=== PATIENT | female | born 1960 | race Caucasian/White ===

== ENCOUNTER 2022-04-15 21:34 | Emergency (ER) | payer MEDICAID, SELFPAY ==
[2022-04-15 21:42] VITALS: BP 162/78; PULSE 85; RESP 16; TEMP 36.6; O2SAT 98; BMI 24.8
--- NOTE | 2022-04-15 21:52 | ED.GENADULT ---
HPI - General Adult General Time Seen by Provider: 21:52 Date Seen: 04/15/22 Chief complaint: Dizziness/Vertigo Stated complaint: Dizzy, Nausea Time Seen by Provider: 04/15/22 21:39 Source: patient Mode of arrival: ambulatory Limitations: no limitations History of Present Illness HPI narrative: 61-year-old female who comes exam lightheadedness. This is been going on this afternoon. She denies headache or vertigo. No numbness or tingling in the arms and legs. She denies chest pain, palpitations, shortness of breath, cough, runny nose, fever, chills. No vomiting, no diarrhea, no abdominal pain. She says she was outside in the heat all day, denies alcohol use. Related Data Home Medications Medication Instructions Recorded Confirmed calcium carbonate 500 mg calcium mg PO BID 03/27/22 03/27/22 (1,250 mg) tablet celecoxib 100 mg capsule 100 mg PO BID 03/27/22 03/27/22 cetirizine 10 mg tablet 10 mg PO DAILY 03/27/22 03/27/22 gabapentin 100 mg capsule mg PO 03/27/22 03/27/22 lisinopril 10 mg tablet 10 mg PO QDAY 03/27/22 03/27/22 ondansetron 4 mg disintegrating mg PO Q6H PRN tab 03/27/22 03/27/22 tablet oxycodone-acetaminophen 5 mg-325 tab PO Q4-6H PRN tab 03/27/22 03/27/22 mg tablet tolterodine 1 mg tablet 1 mg PO QDAY 03/27/22 03/27/22 Allergies Allergy/AdvReac Type Severity Reaction Status Date / Time hydrocodone AdvReac Unknown Upset Verified 03/21/22 11:22 stomach Review of Systems Status of ROS: Reports: 10 or more systems reviewed and unremarkable except as noted in History and below [facility] Medical History (Updated 04/15/22 @ 22:36 by Curtis Durant MD) Trigger finger of left thumb Family History (Updated 03/21/22 @ 08:30 by Mali Alejandro) Father High blood pressure Social History (Updated 03/21/22 @ 08:31 by Mali Alejandro) Narrative: Marital Status: Occupation: School kitchen part-time Number of siblings: 4 Alcohol Use: Yes (weekly) Recreational Drug Use: No Smoking Status: Never smoker Do you use any of these nicotine containing products: None How often do you have a drink containing alcohol: never How often do you have six or more drinks on one occasion: Never AUDIT-C Alcohol total score: 0 Non-prescribed substance use: denies use Exam Const: Vital Signs, click to edit/add: Vital Signs - 24 hr 04/15/22 21:42 04/15/22 22:31 Temperature 97.9 F 97.9 F Pulse Rate [Right Pulse Oximeter] 85 84 Respiratory Rate 16 16 Blood Pressure [Ri ght Upper Arm] 162/78 H 154/70 H Pulse Oximetry 98 98 Documenting provider has reviewed patient's vital signs: yes Common normals: no apparent distress, oriented x3, alert and well nourished HENMT: Common normals: normocephalic, head/scalp atraumatic, external ears normal and external nose normal Head and scalp: normocephalic and atraumatic Nose: external nose normal External ear: external ears normal Eye: Common normals: PERRL and conjunctivae normal Conjunctiva: conjunctiva(e) normal Pupil: PERRL Neck & C-Spine: Common normals: full ROM, no lymphadenopathy and supple Chest: Common normals: palpation of chest normal Resp: Common normals: normal respiratory effort and clear to auscultation bilaterally Auscultation: clear to auscultation bilaterally Cardio: Common normals: regular rate, regular rhythm and no murmurs Rate: regular rate Rhythm: regular rhythm GI: Common normals: Normal to inspection, nondistended, normoactive bowel sounds present, soft to palpation and non-tender Palpation: soft : Common normals: no CVA tenderness Bladder/kidney exam: no CVA tenderness Back & Pelvis: Common normals: no CVA tenderness and thoracic and lumbar spine normal to inspection Extremity: Common normals: normal to inspection, full ROM and no pedal edema Neuro: Common normals: oriented x3, CN's II-XII intact bilaterally and no focal motor deficits Sensorium/orientation: alert Psych: Common normals: mental status grossly normal Skin: Common normals: no rashes or lesions noted General skin exam: no rashes or lesions noted Course Reevaluation(s) Reevaluation #1: Labs demonstrate mild hyponatremia which likely is the source of patient's symptoms today. This is likely dilutional secondary to free water intake and sodium loss from perspiration today. Patient was given normal saline in the emergency department, continue hydration with electrolytes at home. Time: 22:45 Vital Signs Vital signs: Initial Vital Signs Temperature 97.9 F 04/15/22 21:42 Temperature Source Temporal Artery Scan 04/15/22 21:42 Pulse Rate 85 04/15/22 21:42 Respiratory Rate 16 04/15/22 21:42 Blood Pressure 162/78 H 04/15/22 21:42 Blood Pressure Mean 106 04/15/22 21:42 Blood Pressure Position Supine 04/15/22 21:42 Pulse Oximetry 98 04/15/22 21:42 Oxygen Delivery Method 04/15/22 21:42 Vital Signs Temperature 97.9 F 04/15/22 21:42 Pulse Rate 85 04/15/22 21:42 Respiratory Rate 16 04/15/22 21:42 Blood Pressure 162/78 H 04/15/22 21:42 Pulse Oximetry 98 04/15/22 21:42 Temperature 97.9 F 04/15/22 22:31 Pulse Rate 84 04/15/22 22:31 Respiratory Rate 16 04/15/22 22:31 Blood Pressure 154/70 H 04/15/22 22:31 Pulse Oximetry 98 04/15/22 22:31 Medical Decision Making MDM Narrative Medical decision making narrative: Patient seen examined, differential diagnosis includes but not limited to anemia, electrolyte disturbance, dysrhythmia, acute coronary syndrome, dehydrated stents with lightheadedness and nausea today after working outside. No other complaints. Finally stable, no focal neurologic deficits. Labs, fluids, Zofran and EKG are ordered Medical Records Medical records reviewed: Yes I reviewed the patient's medical records Lab Data Lab results reviewed: Yes I reviewed the patient's lab results Labs: Lab Results 04/15/22 04/15/22 04/15/22 Range/Units 22:00 22:00 22:00 Hgb 12.3 (12.0-16.0) gm/dL Sodium 128 L (135-149) mmol/L Potassium 3.8 (3.6-5.1) mmol/L Chloride 94 L (96-114) mmol/L Carbon Dioxide 29 (20-32) mmol/L BUN 11 (7-30) mg/dL Creatinine 0.6 (0.5-1.5) mg/dL Estimated Creat Clear 48.87 Estimated GFR 102 ml/min Glucose 108 (60-115) mg/dL Calcium 9.0 (8.4-10.6) mg/dL POC Troponin I 0.00 L (0.01-0.04) ng/ml ECG Data Attestation: I personally reviewed and interpreted this ECG as follows: Prior ECG tracings: not available for review Interpretation: Performed at 10:09 p.m. demonstrates sinus rhythm rate 62, no acute ST elevations or depressions, normal intervals, normal axis, QTC 424, UT 174. No prior for comparison. Discharge Plan Discharge Clinical Impression: Lightheadedness, Acute hyponatremia Patient Disposition: Home, Self-Care Condition: Improved Instructions: Liquids and Hydration for Athletes (ED), Hyponatremia (ED), Lightheadedness (ED) Additional Instructions: take zofran as needed for nausea f/u with PCP as needed Activity Level: No Restrictions Discharge Diet: Regular Prescriptions: No Action ondansetron 4 mg tablet,disintegrating PO Q6H PRN0RF oxycodone-acetaminophen 5-325 mg tablet PO Q4-6H PRN0RF celecoxib 100 mg capsule 100 mg PO BID 0RF gabapentin 100 mg capsule PO 0RF calcium carbonate 500 mg calcium (1,250 mg) tablet PO BID 0RF cetirizine 10 mg tablet 10 mg PO DAILY 0RF lisinopril 10 mg tablet 10 mg PO QDAY 0RF tolterodine 1 mg tablet 1 mg PO QDAY 0RF Follow Up/Referrals: Freya Maria PA-C [Primary Care Provider] - Stand Alone Forms: MyHealth Info Instructions
[2022-04-15 22:07] LABS: Hemoglobin* 12.3 gm/dL (12.0-16.0)
[2022-04-15] MEDS: 0.9 % SODIUM CHLORIDE 1000 ml 1,000 ML IV (22:07)
[2022-04-15] MEDS: ONDANSETRON 2 MG/ML inj 4 MG IVP (22:07)
[2022-04-15 22:19] LABS: Chloride* 94 mmol/L (96-114); Potassium* 3.8 mmol/L (3.6-5.1); Sodium* 128 mmol/L (135-149)
[2022-04-15 22:21] LABS: Creatinine* 0.6 mg/dL (0.5-1.5); Est. Creatinine Clearance* 48.87; Estimated Glomerular Filt Rate 102 ml/min
[2022-04-15 22:22] LABS: Blood Urea Nitrogen* 11 mg/dL (7-30); Carbon Dioxide* 29 mmol/L (20-32); Glucose* 108 mg/dL (60-115)
[2022-04-15 22:31] VITALS: BP 154/70; PULSE 84; RESP 16; TEMP 36.6; O2SAT 98
[2022-04-15 22:56] VITALS: BP 122/69; PULSE 84; RESP 16; TEMP 36.6
== END 2022-04-15 22:56 | disposition home or self-care (01) ==
LOC: ED 22:54
PROVIDERS: Emergency Provider Family Medicine; PCP Physician Assistant Medical
DX: R42 Dizziness and giddiness (principal); E87.1 Hypo-osmolality and hyponatremia
CPT/HCPCS: 36415; 80048; 84484; 85018; 93005; 96374; 99284; J2405; J7030

== ENCOUNTER 2023-03-11 06:26 | Day surgery (SDC) | payer MEDICAID, SELFPAY ==
[2023-03-11 06:46] VITALS: BMI 23.9
[2023-03-11 06:51] VITALS: BP 129/66; PULSE 65; RESP 16; TEMP 36.8
[2023-03-11] MEDS: BUPIVACAINE 0.5% 30 ML INJECTION (07:05)
--- NOTE | 2023-03-11 07:15 | SUR.PREOP ---
SAME DAY SURGERY LOCAL INJECTION SITE VERIFICATION WAS PERFORMED BY SURGEON/PA AND PATIENT PRIOR TO LOCAL ANESTHETIC BEING INJECTED TO OPERATIVE SITE.
[2023-03-11 07:27] VITALS: BP 145/71; PULSE 63; RESP 16; O2SAT 99
[2023-03-11 07:30] VITALS: BP 142/69; PULSE 60; O2SAT 98
--- NOTE | 2023-03-11 07:32 | P.ORPRC_ITS ---
Procedure Note Date of procedure: 03/11/23 Procedure: PREOPERATIVE DIAGNOSIS: 1. Right thumb flexor tenosynovitis - trigger finger POSTOPERATIVE DIAGNOSIS: 1. Right thumb flexor tenosynovitis - trigger finger PROCEDURE: 1. Right thumb flexor tendon sheath open release (A1 patricio) SURGEON: Declan Sousa MD. CENTRAL CONTROL ROOM OPERATOR: Erick Murray PA-C ANESTHESIA: Local anesthetic 4ml via 50:50 mixture of 1% Lidocaine with epi and 0.5% marcaine plain EBL: 2mL IMPLANTS: None TOURNIQUET: None COMPLICATIONS: None evident INDICATIONS: The patient is a pleasant 62-year-old female who has experienced right thumb catching/triggering for number of months. It has progressively gotten worse. Given the failure of nonoperative management, and how this affects daily life, surgery was recommended. DESCRIPTION OF PROCEDURE: Following a thorough discussion of risks, benefits, and alternatives consent was obtained and the operative digit(s) was marked. The patient was brought to the operating room and placed supine on the operating table. Local anesthesia induction was undertaken in preop holding. No antibiotics were administered as this was planned to be a local case only. Proper time-out was performed identifying proper patient, site, and procedure. The operative extremity was prepped and draped in the appropriate sterile fashion using ChloraPrep. A incision was made on the palmar surface of the hand overlying the MCP joint region of the appropriate digit(s) respecting the palmar creases being cautious not to cross these perpendicularly. Sharp incision through the skin, and blunt dissection through subcutaneous tissue allowing protection of crossing n eurologic structures. The A1 patricio was visualized directly. It was incised sharply with a 15 blade. It was released completely from its distal to proximal extent under direct visualization. The tendon was inspected and found to be mildly striated consistent with some friction. Otherwise, it was intact. The tendon was removed out of the wound, and further inspected. The patient was asked to manually flex and extend the digits and showed no further catching. The catching, which was visualized initially, was no longer evident with reproduction of a manual fist and relaxation. Closure was performed with 4-O nylon in interrupted fashion. Soft dressings were applied, and the patient was transferred to the recovery room in stable condition. PLAN: 1. Encourage elevation of the operative extremity. 2. Range of motion of the fingers and hand/wrist as tolerated. 3. Ibuprofen/acetaminophen and/or oxycodone as needed for pain control. 4. Follow up with PA visit in 12-16 days for wound check and suture removal.
[2023-03-11 07:35] VITALS: BP 139/63; PULSE 62; RESP 14; O2SAT 99
[2023-03-11 07:40] VITALS: BP 136/66; PULSE 63; RESP 16; O2SAT 100
[2023-03-11 07:52] VITALS: BP 139/74; PULSE 63; RESP 16; TEMP 36.9; O2SAT 99
== END 2023-03-11 07:59 | disposition home or self-care (01) ==
PROVIDERS: PCP Physician Assistant Medical; Visit Provider Orthopaedic Surgery Sports Medicine
PROC: (CPT 26055; principal; 2023-03-11 07:30)
DX: M65.311 Trigger thumb, right thumb (principal); M65.841 Other synovitis and tenosynovitis, right hand
CPT/HCPCS: 26055; J3490

== ENCOUNTER 2023-08-23 10:15 | Outpatient (RCR) | payer MEDICAID, SELFPAY | END 2023-11-01 11:00 | disposition home or self-care (01) | PROVIDERS: PCP Physician Assistant Medical; Visit Provider Orthopaedic Surgery | DX: M54.16 Radiculopathy, lumbar region (principal); M51.26 Other intervertebral disc displacement, lumbar region; M25.571 Pain in right ankle and joints of right foot; G47.9 Sleep disorder, unspecified; Z74.09 Other reduced mobility; M25.671 Stiffness of right ankle, not elsewhere classified; Z51.89 Encounter for other specified aftercare | CPT/HCPCS: 97110; 97140; 97162 ==

== ENCOUNTER 2023-09-09 14:00 | Outpatient (RCR) | payer MEDICAID, SELFPAY | END 2024-01-06 07:54 | disposition home or self-care (01) | PROVIDERS: PCP Physician Assistant Medical; Visit Provider Family Medicine | DX: M54.16 Radiculopathy, lumbar region (principal); M51.26 Other intervertebral disc displacement, lumbar region; M21.371 Foot drop, right foot; M79.606 Pain in leg, unspecified; M62.81 Muscle weakness (generalized); Z51.89 Encounter for other specified aftercare | CPT/HCPCS: 97012; 97110; 97140; 97162; 97530 ==

== ENCOUNTER 2023-09-10 09:08 | Outpatient (CLI) | payer MEDICAID, SELFPAY | END 2023-09-10 09:09 | disposition home or self-care (01) | LOC: INJ CL 09:09 | PROVIDERS: PCP Physician Assistant; Visit Provider Family Medicine | DX: M54.16 Radiculopathy, lumbar region (principal); M51.36 Other intervertebral disc degeneration, lumbar region | CPT/HCPCS: 62323; J0702; Q9966 ==

== ENCOUNTER 2024-02-20 14:45 | Outpatient (RCR) | payer MEDICAID, SELFPAY | END 2024-02-20 16:08 | disposition home or self-care (01) | PROVIDERS: PCP Physician Assistant; Visit Provider Specialist | DX: M21.371 Foot drop, right foot (principal); Z51.89 Encounter for other specified aftercare | CPT/HCPCS: 97110; 97140; 97161; 97535 ==

== ENCOUNTER 2024-08-06 14:45 | Outpatient (RCR) | payer MEDICAID, SELFPAY | END 2024-10-13 14:33 | disposition home or self-care (01) | PROVIDERS: PCP Student in an Organized Health Care Education/Training Program; Visit Provider Student in an Organized Health Care Education/Training Program | DX: S46.001A Unspecified injury of muscle(s) and tendon(s) of the rotator cuff of right shoulder, initial encounter (principal); M25.511 Pain in right shoulder; Z51.89 Encounter for other specified aftercare | CPT/HCPCS: 97110; 97161 ==

== ENCOUNTER 2025-01-06 11:00 | Outpatient (RCR) | payer MEDICAID, SELFPAY | END 2025-01-06 12:23 | disposition home or self-care (01) | PROVIDERS: PCP Student in an Organized Health Care Education/Training Program; Visit Provider Orthopaedic Surgery | DX: M65.342 Trigger finger, left ring finger (principal); M79.641 Pain in right hand; M79.642 Pain in left hand; M19.042 Primary osteoarthritis, left hand; M19.041 Primary osteoarthritis, right hand; R53.1 Weakness; Z51.89 Encounter for other specified aftercare | CPT/HCPCS: 97035; 97110; 97140; 97165; 97535; X5282 ==